=== PATIENT | female | born 1980 | race Native Hawaiian/Other Pacific Islander ===

== ENCOUNTER 2016-06-11 07:44 | Outpatient (CLI) | payer BC ==
[~2016-06-11 07:44] MED LIST: AMITRIPTYLIN50 MG PO; LEVO0.0723 PO; MELOXICAM15 MG PO; METF500T PO; NEURONTIN800 MG PO; PROPRANOLOL10 MG PO; RIZATRIPTAN PO; TOPAMAX50 MG PO; TRAM50TA PO
== END 2016-06-11 19:31 | disposition home or self-care (01) ==
LOC: CT 07:44
DX: R10.0 Acute abdomen (principal)
CPT/HCPCS: Q9963

== ENCOUNTER 2017-04-02 14:09 | Emergency (ER) | payer BC ==
[~2017-04-02] VITALS: Ht 160 cm; Wt 90.3 kg
[2017-04-02 17:23] LABS: PLATELET COUNT 276 K/uL (152-353)
[2017-04-02 17:34] LABS: POTASSIUM 3.7 mmol/L (3.6-5.2); SODIUM 135 mmol/L (136-145)
[2017-04-02 18:50] VITALS: BP 128/84; TEMP 97.8
== END 2017-04-02 18:50 | disposition home or self-care (01) ==
LOC: ED 14:09
PROVIDERS: Specialist
DX: N83.202 Unspecified ovarian cyst, left side (principal); E28.2 Polycystic ovarian syndrome
CPT/HCPCS: 36415; 80053; 80307; 81000; 85027; 96374; 99283; G0479; J2175; J2550

== ENCOUNTER 2017-04-05 13:04 | Emergency (ER) | payer BC ==
[~2017-04-05] VITALS: Ht 160 cm; Wt 90.3 kg
[2017-04-05 15:21] LABS: PLATELET COUNT 275 K/uL (152-353)
[2017-04-05 15:31] LABS: POTASSIUM 3.3 mmol/L (3.6-5.2); SODIUM 138 mmol/L (136-145)
[2017-04-05 16:31] VITALS: BP 100/72; TEMP 98.2
== END 2017-04-05 16:32 | disposition home or self-care (01) ==
LOC: ED 13:04
PROVIDERS: Family Medicine
DX: R10.84 Generalized abdominal pain (principal); N83.291 Other ovarian cyst, right side; N20.0 Calculus of kidney; R91.1 Solitary pulmonary nodule
CPT/HCPCS: 36415; 80053; 81000; 82150; 85027; 96374; 96375; 99284; J1885; J2175; J2405; J2550

== ENCOUNTER 2017-09-18 10:04 | Outpatient (CLI) | payer BC | END 2017-09-18 19:26 | disposition home or self-care (01) | LOC: MAMMO 10:04 | DX: Z12.31 Encounter for screening mammogram for malignant neoplasm of breast (principal) ==

== ENCOUNTER 2019-02-26 12:07 | Outpatient (CLI) | payer BC ==
[2019-02-26 13:52] LABS: POTASSIUM 4.6 mmol/L (3.6-5.2)
== END 2019-02-26 19:15 | disposition home or self-care (01) ==
LOC: LABW 12:07 → RAD 12:07 → LABW 19:15
PROVIDERS: Nurse Practitioner Family
DX: R10.9 Unspecified abdominal pain (principal); R10.13 Epigastric pain
CPT/HCPCS: 36415; 80053; 82150; 83690

== ENCOUNTER 2020-11-02 17:26 | Emergency (ER) | payer BC ==
[~2020-11-02] VITALS: Ht 160 cm; Wt 98.9 kg
[2020-11-02 18:30] VITALS: BP 118/79; TEMP 97.5
== END 2020-11-02 18:30 | disposition home or self-care (01) ==
LOC: ED 17:26
DX: S93.491A Sprain of other ligament of right ankle, initial encounter (principal); X50.1XXA Overexertion from prolonged static or awkward postures, initial encounter; Y92.098 Other place in other non-institutional residence as the place of occurrence of the external cause
CPT/HCPCS: 99282

== ENCOUNTER 2021-01-28 13:37 | Emergency (ER) | payer BC ==
[~2021-01-28] VITALS: Ht 160 cm; Wt 98.9 kg
[2021-01-28 17:39] VITALS: BP 142/91; TEMP 97
== END 2021-01-28 17:40 | disposition home or self-care (01) ==
LOC: ED 13:37
DX: G43.909 Migraine, unspecified, not intractable, without status migrainosus (principal); R11.2 Nausea with vomiting, unspecified
CPT/HCPCS: 96372; 99283; J1200; J1885; J2550

== ENCOUNTER 2023-01-23 12:07 | Outpatient (CLI) | payer BC | END 2023-01-23 19:59 | disposition home or self-care (01) | LOC: RAD 12:07 | PROVIDERS: ATTEND Nurse Practitioner Family | DX: R09.89 Other specified symptoms and signs involving the circulatory and respiratory systems (principal) ==